=== PATIENT | female | born 1950 | race Hispanic/Latino ===

== ENCOUNTER 2017-11-05 18:44 | Emergency (ER) | payer OTHER, MEDICARE ==
[~2017-11-05] VITALS: Ht 154.9 cm; Wt 68.9 kg
[~2017-11-05 18:44] MED LIST: ASPIRIN81 M1 PO; LANTUS100 UNITS/ SQ; LISINOPRIL20 MG PO; SIMVASTATIN20 MG PO; VITAMIN E400 UNI1 PO
[2017-11-05] MEDS ORDERED: METFORMIN HCL500 MG PO (19:22)
[2017-11-05] MEDS ORDERED: FARXIGA PO (19:25)
[2017-11-05] MEDS ORDERED: TRESIBA SQ (19:27)
[2017-11-05] MEDS ORDERED: MELOXICAM7.5 MG PO (20:08)
[2017-11-05 20:29] VITALS: BP 128/72
[2017-11-05] MEDS ORDERED: KETOROLAC TROMETHAMINE 60 MG/2 ML VIAL IM ONE (20:30)
== END 2017-11-05 20:32 | disposition home or self-care (01) ==
LOC: FSED 18:44
DX: S70.02XA Contusion of left hip, initial encounter (principal); S70.01XA Contusion of right hip, initial encounter; W10.8XXA Fall (on) (from) other stairs and steps, initial encounter; Y92.008 Other place in unspecified non-institutional (private) residence as the place of occurrence of the external cause; I10 Essential (primary) hypertension; E11.9 Type 2 diabetes mellitus without complications
CPT/HCPCS: 99283; J1885